=== PATIENT | male | born 1965 | race Caucasian/White ===

== ENCOUNTER 2023-07-07 11:49 | Outpatient (CLI) | payer SELFPAY | END 2023-07-07 11:50 | disposition home or self-care (01) | LOC: AMB 07-15 09:42 | PROVIDERS: Visit Provider Family Medicine | DX: T63.441A Toxic effect of venom of bees, accidental (unintentional), initial encounter (principal); T78.2XXA Anaphylactic shock, unspecified, initial encounter | CPT/HCPCS: A0425; A0427 ==